=== PATIENT | male | born 1990 | race Caucasian/White ===

== ENCOUNTER 2021-06-16 13:26 | Inpatient (IN) | payer OTHER ==
[~2021-06-16] VITALS: Ht 182.9 cm; Wt 100.0 kg
[~2021-06-16 13:26] MED LIST: REMERON15 MG PO; VENLAFAXINE HC150 MG PO
[2021-06-16 14:18] LABS: BASOPHIL 0.7 % (0-2); EOSINOPHIL 0.3 % (0-5); HCT 46.8 % (42.0-52.0); HGB 15.9 g/dl (13.2-18.0); LYMPHOCYTE 18.1 % (15-48); MCH 29.1 pg (25.0-31.0); MCV 85.6 fL (78.0-100.0); MONOCYTE 9.6 % (0-12); MPV 9.4 fL (6.0-9.5); NEUTROPHIL 70.7 % (41-80); NRBC 0; PLT 287 K/uL (150-400); RBC 5.47 M/uL (4.70-6.00); RDW 12.3 % (11.5-14.0); WBC 11.8 K/uL (4.0-10.5)
[2021-06-16 14:41] LABS: ALBUMIN 4.8 g/dL (3.4-5.0); ALKALINE PHOSHATASE 75 U/L (46-116); ALT 28 U/L (16-63); AST 33 U/L (15-37); BILIRUBIN - TOTAL 0.2 mg/dL (0.2-1.0); BUN 10 mg/dL (7-18); BUN/CREAT RATIO (CALC) 9.4 RATIO; CHLORIDE 104 mmol/L (98-107); CO2 (BICARBONATE) 30 mmol/L (21-32); CREATININE 1.06 mg/dL (0.67-1.17); GLOBULIN (CALCULATION) 3.2 g/dL; GLUCOSE 104 mg/dL (74-106); MAGNESIUM 2.2 mg/dL (1.8-2.4); POTASSIUM 4.3 mmol/L (3.5-5.1)
[2021-06-16 14:42] LABS: ACETAMINOPHEN (TYLENOL) < 2.0 ug/mL (10.0-30.0)
[2021-06-16 15:05] LABS: BILIRUBIN NEGATIVE (NEGATIVE); BLOOD NEGATIVE Ery/uL (NEGATIVE); CLARITY CLEAR (CLEAR); COLOR YELLOW (YELLOW); GLUCOSE (U) NORMAL (NORMAL); LEUKOCYTES NEGATIVE Leu/uL (NEGATIVE); NITRITE NEGATIVE (NEGATIVE); PROTEIN NEGATIVE (NEGATIVE); SPECIFIC GRAVITY <=1.005 (1.001-1.030); UROBILINOGEN 0.2 mg/dL (0.2-1.0)
[2021-06-16 15:09] LABS: AMPHETAMINES NEGATIVE (NEGATIVE); BARBITURATES NEGATIVE (NEGATIVE); ECSTASY (MDMA) NEGATIVE (NEGATIVE); MARIJUANA (THC) NEGATIVE (NEGATIVE); METHADONE NEGATIVE (NEGATIVE); OPIATES NEGATIVE (NEGATIVE); OXYCODONE NEGATIVE (NEGATIVE)
[2021-06-17] MEDS ORDERED: CHLORPROMAZINE100 MG PO (02:49)
[2021-06-17] MEDS ORDERED: FLUOXETINE HCL40 MG PO (02:49)
[2021-06-17] MEDS ORDERED: MIRTAZAPINE30 MG PO (02:50)
[2021-06-17] MEDS ORDERED: QUETIAPINE FUM100 MG PO (02:54)
[2021-06-17] MEDS ORDERED: REXULTI1 MG PO (02:55)
[2021-06-17] MEDS ORDERED: NICOTINE GUM4 MG PO (02:55)
[2021-06-17] MEDS ORDERED: ATOMOXETINE HCL80 MG PO (02:57)
[2021-06-17 06:13] LABS: BASOPHIL 0.2 % (0-2); EOSINOPHIL 0.1 % (0-5); HCT 40.9 % (42.0-52.0); LYMPHOCYTE 15.3 % (15-48); MCH 29.2 pg (25.0-31.0); MCHC 34.2 g/dL (32.0-36.0); MCV 85.2 fL (78.0-100.0); MONOCYTE 10.4 % (0-12); MPV 9.2 fL (6.0-9.5); NEUTROPHIL 73.7 % (41-80); NRBC 0; PLT 244 K/uL (150-400); RDW 12.2 % (11.5-14.0); WBC 13.5 K/uL (4.0-10.5)
[2021-06-17 06:29] LABS: BUN/CREAT RATIO (CALC) 7.1 RATIO; CREATININE 0.85 mg/dL (0.67-1.17)
--- NOTE | 2021-06-18 00:43 | NUR ---
PER PTS REQUEST THIS NURSE CALLED HIS MOTHER TO LET HER KNOW WHERE PT WAS & PROVIDE UPDATE. PER MOM: " CARROLL HAS BEEN IN THE [facility] FOR 4 MONTHS" "CARROLL IS AN ADDICT BUT DUE TO HIS LEVEL OF INTELLIGENCE & HIS WELL SPOKEN ABILITIES, CARROLL SEEMS TO RECEIVE ANY MEDICATION HE ASKS FOR FROM DOCTORS". "CARROLL HAS BEEN TOLD THAT DUE TO HIS DIAGNOSIS OF BI-POLAR HE IS TO AVOID CERTAIN MEDS LIKE PROZAC & WELLBUTRIN & ADHD MEDS PER THE DR THAT DIAGNOSED HIM." "THESE MEDS MAKE HIM MANIC." "CARROLL IS ONLY SUPPOSED TO BE ON A MOOD STABILIZER." ALL OF THIS IS PER CARROLL'S MOM KISHOR PARSONS [phone]. MOM ALSO REQUESTED THAT CARROLL BE REMINDED TO CALL HER FROM [facility] TO ESTABLISH CONTACT WITH HER SHE WILL BE UNABLE TO REACH HIM IF HE DOESN'T CALL [facility] CARROLL HAD BEEN NOTIFIED OF THIS.
--- NOTE | 2021-06-18 03:14 | NUR ---
POISON CONTROL CALLED FOR UPDATE ON PT. PER POISON CONTROL: "WE RECOMMEND ANOTHER CT PRIOR TO PT TRANSFER/MEDICAL CLEARANCE TO ENSURE QRS IS 100MS OR BELOW & QTc IS 470MS OR LESS."
[2021-06-18 05:31] LABS: BASOPHIL 0.9 % (0-2); EOSINOPHIL 1.3 % (0-5); HCT 41.6 % (42.0-52.0); HGB 14.1 g/dl (13.2-18.0); LYMPHOCYTE 21.9 % (15-48); MCH 29.4 pg (25.0-31.0); MCHC 33.9 g/dL (32.0-36.0); MCV 86.8 fL (78.0-100.0); MONOCYTE 12.6 % (0-12); MPV 9.1 fL (6.0-9.5); NEUTROPHIL 62.6 % (41-80); NRBC 0; PLT 231 K/uL (150-400); RBC 4.79 M/uL (4.70-6.00); RDW 12.3 % (11.5-14.0); WBC 9.2 K/uL (4.0-10.5)
[2021-06-18 05:50] LABS: ALBUMIN 3.9 g/dL (3.4-5.0); ALKALINE PHOSHATASE 64 U/L (46-116); ALT 32 U/L (16-63); AST 26 U/L (15-37); BILIRUBIN - TOTAL 0.5 mg/dL (0.2-1.0); BUN 16 mg/dL (7-18); BUN/CREAT RATIO (CALC) 15.1 RATIO; CHLORIDE 103 mmol/L (98-107); CO2 (BICARBONATE) 29 mmol/L (21-32); CREATININE 1.06 mg/dL (0.67-1.17); GLOBULIN (CALCULATION) 2.8 g/dL; GLUCOSE 89 mg/dL (74-106); PHOSPHORUS 2.8 mg/dL (2.6-4.7); POTASSIUM 4.2 mmol/L (3.5-5.1); TOTAL PROTEIN 6.7 g/dL (6.4-8.2)
--- NOTE | 2021-06-18 12:20 | NUR ---
06/18/21 Patient will be transferred to [facility].
== END 2021-06-18 12:20 | disposition other institution (70) | DRG 918 ==
LOC: FER 13:26 → FTCU 23:23
PROVIDERS: Emergency Medicine; Nurse Practitioner; ADMIT Internal Medicine
DX: T43.212A Poisoning by selective serotonin and norepinephrine reuptake inhibitors, intentional self-harm, initial encounter (principal); G40.509 Epileptic seizures related to external causes, not intractable, without status epilepticus; F31.9 Bipolar disorder, unspecified; T43.222A Poisoning by selective serotonin reuptake inhibitors, intentional self-harm, initial encounter; F90.9 Attention-deficit hyperactivity disorder, unspecified type; Z20.822 Contact with and (suspected) exposure to COVID-19; Y90.6 Blood alcohol level of 120-199 mg/100 ml; F10.129 Alcohol abuse with intoxication, unspecified; Z88.1 Allergy status to other antibiotic agents
CPT/HCPCS: 36415; 36600; 74018; 80048; 80053; 80305; 81003; 82803; 83605; 83735; 84100; 84145; 85025; 86140; 93005; 94010; 96372; G0480; J1650; J1953; J2060; J2405; J3411; J3475; J3486; J7030; J7070; U0002